=== PATIENT | male | born 1955 | race Caucasian/White ===

== ENCOUNTER 2017-08-11 19:58 | Emergency (ER) | END 2017-08-12 00:25 | disposition home or self-care (01) ==

== ENCOUNTER 2018-02-02 13:56 | Emergency (ER) | END 2018-02-02 15:55 | disposition home or self-care (01) ==

== ENCOUNTER 2018-02-05 06:55 | Emergency (ER) | END 2018-02-05 07:40 | disposition home or self-care (01) ==

== ENCOUNTER 2018-02-10 07:51 | Emergency (ER) | END 2018-02-10 08:08 | disposition home or self-care (01) ==

== ENCOUNTER 2018-07-18 00:04 | Emergency (ER) | payer BC, OTHER ==
[~2018-07-18] VITALS: Ht 177.8 cm; Wt 113.9 kg
[~2018-07-18 00:04] MED LIST: ACET1TAB40 PO; AMLO-145 PO; CEPH-443 PO; IBUP-1542 PO
[2018-07-18 00:08] VITALS: BP 167/83; PULSE 72; RESP 18; Ht 177.8 cm; Wt 113.9 kg
[2018-07-18] MEDS ORDERED: DIPHENHYDRAMINE 50 MG CAP PO ONE (03:30)
[2018-07-18] MEDS ORDERED: METHYLPREDNISOLONE 125 MG INJ IM ONE (03:30)
[2018-07-18] MEDS ORDERED: FAMOTIDINE 20 MG TAB PO ONE (03:30)
[2018-07-18] MEDS ORDERED: FAMO-96 PO (04:17)
[2018-07-18] MEDS ORDERED: PRED20TA PO (04:17)
[2018-07-18] MEDS ORDERED: BEN25 PO (04:17)
--- NOTE | 2018-07-18 07:38 | ERD ---
ER Documentation Chief Complaint Chief Complaint Skin rash all over body X 1 day after eating "salty food" HPI Patient is a 62-year-old male with a past medical history of hypertension, who presents for concerns of rash throughout his body. Patient states he noticed the rash this morning upon waking up. Patient states that his body feels itchy. Patient denies any lip swelling, tongue swelling, difficulty breathing, chest tightness, chest pain or shortness of breath. Patient states he has been unable to sleep secondary to body itching. Patient does not recall any new foods, medications, environmental changes. Patient states he did get a massage 2 days ago and is not sure if it is due to the massage oil. Patient denies any fevers or chills. ROS All systems reviewed and are negative except as per history of present illness. Medications Home Meds Active Scripts Famotidine* (Pepcid*) 20 Mg Tablet, 20 MG PO BID for 5 Days, TAB Prov:JUANJO GODFREY PA-C 07/18/18 Diphenhydramine Hcl* (Benadryl*) 25 Mg Cap, 25 MG PO Q6, #30 CAP Prov:JUANJO GODFREY PA-C 07/18/18 Prednisone* (Prednisone*) 20 Mg Tab, 60 MG PO DAILY for 4 Days, TAB Prov:JUANJO GODFREY PA-C 07/18/18 Acetaminophen with Codeine (Acetaminophen-Cod #3 Tablet) 1 Each Tablet, 1 TAB PO Q6H PRN for PAIN, #7 TAB Prov:GURPREET MIRZA MD 02/02/18 Ibuprofen* (Motrin*) 600 Mg Tab, 600 MG PO Q6H PRN for PAIN AND OR ELEVATED TEMP, #30 TAB Prov:RY LONG NP 08/11/17 Cephalexin* (Keflex*) 500 Mg Capsule, 500 MG PO QID for 5 Days, CAP Prov:RY LONG NP 08/11/17 Reported Medications Amlodipine Besylate* (Amlodipine Besylate*) 5 Mg Tablet, 5 MG PO DAILY 10/12/12 Allergies Allergies: Coded Allergies: No Known Drug Allergies (Verified Allergy, Unknown, 04/20/14) PMhx/Soc History of Surgery: Yes (APPENDECTOMY) Anesthesia Reaction: No Hx Neurological Disorder: No Hx Respiratory Disorders: No Hx Cardiac Disorders: Yes (htn) Hx Psychiatric Problems: No Hx Miscellaneous Medical Probl: No Hx Alcohol Use: No Hx Substance Use: No Hx Tobacco Use: No FmHx Family History: No diabetes Physical Exam Vitals Vital Signs Date Temp Pulse Resp B/P (MAP) Pulse Ox O2 O2 Flow FiO2 Time Delivery Rate 07/18/18 97.5 72 18 167/83 98 00:08 (111) Physical Exam GENERAL: Well-developed, well-nourished male. Appears in no acute distress. Speaking in full sentences. HEAD: Normocephalic, atraumatic. EYES: Pupils are equally reactive bilaterally. EOMs grossly intact. No conjunctival erythema. ENT: Moist mucous membranes. No uvula deviation. No kissing tonsils. No lip swelling. No tongue swelling. Oropharynx is open and patient is tolerating secretions well. NECK: Supple. No meningismus. Normal range of motion of the neck. LUNG: Clear to auscultation bilaterally. No rhonchi, wheezing, rales or coarse breath sounds. HEART: Regular rate and rhythm. No murmurs, rubs or gallops. EXTREMITIES: Equal pulses bilaterally. No peripheral clubbing, cyanosis or edema. No unilateral leg swelling. NEUROLOGIC: Alert and oriented. Moving all four extremities without any difficulty. Normal speech. Steady gait. SKIN: Diffuse erythematous plaque-like lesions noted throughout the patient's body. Lesions are consistent with hives. Results 24 hrs Current Medications Medications Dose Sig/Alisson Start Time Status Last (Trade) Ordered Route PRN Stop Time Admin Dose Reason Admin 125 mg ONCE ONCE 07/18/18 DC 07/18/18 Methylprednis IM 03:30 03:24 olone Sodium 07/18/18 03:31 Succinate (Solu-Medrol) Famotidine 20 mg ONCE ONCE 07/18/18 DC 07/18/18 (Pepcid) PO 03:30 03:24 07/18/18 03:31 50 mg ONCE ONCE 07/18/18 DC 07/18/18 Diphenhydrami PO 03:30 03:24 ne HCl 07/18/18 03:31 (Benadryl) Procedures/MDM MEDICAL DECISION MAKING: This is a 62-year-old male who presents the ER for concerns of diffuse, itchy rash which started earlier this morning. Patient had no lip swelling, tongue swelling, difficulty breathing, chest tightness or LOC. Vital signs were reviewed. Patient was afebrile. Patient is not diabetic. On exam, patient had diffuse hives throughout his body. Patient was given Solu-Medrol IM, Pepcid and Benadryl here in the ER. Patient had improvement in pain rash prior to discharge. Low suspicion for anaphylaxis, necrotizing fasciitis, sepsis, gangrene, Herve-Kye syndrome, toxic epidural necrolysis, abscess, cellulitis, herpes zoster, fungal infection, insect bite, impetigo, dermatitis. PRESCRIPTIONS: Prednisone, Benadryl, Pepcid DISCHARGE: At this time, patient is stable for discharge and outpatient management. I have advised the patient to avoid any new products, creams or possible allergens. I have advised the patient to avoid scratching the lesions. I have instructed the patient to follow-up with his/her primary care physician in 1-2 days. If symptoms persist, patient may need to see a model photographers' for further examinations and testing. I have instructed the patient to promptly return to the ER at any time for any new or worsening symptoms including increased pain, fever, redness, swelling, warmth, difficulty breathing or vomiting. The patient and/or family expressed understanding of and agreement with this plan. All questions were answered. Home care instructions were provided. Disclaimer: Inadvertent spelling and grammatical errors are likely due to EHR/di ctation software use and do not reflect on the overall quality of patient care. Also, please note that the electronic time recorded on this note does not necessarily reflect the actual time of the patient encounter. Departure Diagnosis: Primary Impression: Hives Additional Impression: Allergic reaction Encounter type: initial encounter Qualified Codes: T78.40XA - Allergy, unspecified, initial encounter Condition: Fair Patient Instructions: First Aid: Allergic Reactions, Hives Referrals: COMMUNITY CLINICS YOU HAVE RECEIVED A MEDICAL SCREENING EXAM AND THE RESULTS INDICATE THAT YOU DO NOT HAVE A CONDITION THAT REQUIRES URGENT TREATMENT IN THE EMERGENCY DEPARTMENT. FURTHER EVALUATION AND TREATMENT OF YOUR CONDITION CAN WAIT UNTIL YOU ARE SEEN IN YOUR DOCTORS OFFICE WITHIN THE NEXT 1-2 DAYS. IT IS YOUR RESPONSIBILITY TO MAKE AN APPOINTMENT FOR FOLOW-UP CARE. IF YOU HAVE A PRIMARY DOCTOR --you should call your primary doctor and schedule an appointment IF YOU DO NOT HAVE A PRIMARY DOCTOR YOU CAN CALL OUR PHYSICIAN REFERRAL HOTLINE AT IF YOU CAN NOT AFFORD TO SEE A PHYSICIAN YOU CAN CHOSE FROM THE FOLLOWING [facility] CL[facility] [address] [facility] [address] [facility] [address] [facility] [address] [facility] [phone]. [facility] [address] [facility]. [facility] YOU HAVE RECEIVED A MEDICAL SCREENING EXAM AND THE RESULTS INDICATE THAT YOU DO NOT HAVE A CONDITION THAT REQUIRES URGENT TREATMENT IN THE EMERGENCY DEPARTMENT. FURTHER EVALUATION AND TREATMENT OF YOUR CONDITION CAN WAIT UNTIL YOU ARE SEEN IN YOUR DOCTORS OFFICE WITHIN THE NEXT 1-2 DAYS. IT IS YOUR RESPONSIBILITY TO MAKE AN APPOINTMENT FOR FOLOW-UP CARE. IF YOU HAVE A PRIMARY DOCTOR --you should call your primary doctor and schedule and appointment IF YOU DO NOT HAVE A PRIMARY DOCTOR YOU CAN CALL OUR PHYSICIAN REFERRAL HOTLINE AT . IF YOU CAN NOT AFFORD TO SEE A PHYSICIAN YOU CAN CHOSE FROM THE FOLLOWING [facility]: [facility] [address] [place] [address] [facility] [address] [place] [address] [facility] [address] [place] [address] Additional Instructions: Monitor symptoms closely. If you have any new or worsening rashes, lip swelling, tongue swelling, difficulty breathing, trouble swallowing, return to the ER immediately. Call your primary care doctor TOMORROW for an appointment during the next 1-2 days.See the doctor sooner or return here if your condition worsens before your appointment time. JUANJO GODFREY PA-C Jul 18, 2018 07:38
== END 2018-07-18 04:26 | disposition home or self-care (01) ==
LOC: FTE 00:04
DX: L50.9 Urticaria, unspecified (principal); I10 Essential (primary) hypertension
CPT/HCPCS: J2930; Z7610; 96372